=== PATIENT | female | born 1970 | race Caucasian/White ===

== ENCOUNTER → 2017-06-09 | Outpatient (CLI) | payer BC ==
[~2017-06-09] MED LIST: ALBU90OI INH; AMLO10; AZOR; AZOR PO; Avapro300 MG; Azor 10-20 MG1 EACH; Azor 10-40 MG1 EACH PO; BENTYL10 MG PO; CHOL10002; CHOL10002 PO; CYCL10 PO; ELIQUIS2.5 MG; ENOX100I SC; HYDACE5 PO; HYDR1TAB94; Hydrocodone-Ap1 EA23 PO; IBUP800 PO; IRBHYD300 PO; LISHYD2012 PO; RXCYCL10 PO; RXHYDACE PO
[2017-06-10 11:28] LABS: Candida species (DNA Probe) Negative (NEGATIVE); G. vaginalis (DNA Probe) Positive (NEGATIVE); T. vaginalis (DNA Probe) Negative (NEGATIVE)
== END | disposition home or self-care (01) ==
LOC: LAB SHORT 11:59
PROVIDERS: Obstetrics & Gynecology
DX: N76.0 Acute vaginitis (principal)
CPT/HCPCS: 87480; 87510; 87660

== ENCOUNTER 2017-09-01 09:03 | Day surgery (SDC) | payer BC ==
[~2017-09-01] VITALS: Ht 167.6 cm; Wt 81.7 kg
== END 2017-09-01 11:44 | disposition home or self-care (01) ==
LOC: ORSCSDS 09:03
PROVIDERS: Podiatrist Foot & Ankle Surgery
PROC: 0LBW0ZZ Excision of Left Foot Tendon, Open Approach (ICD-10-PCS; principal; 2017-09-01 10:15)
DX: L72.9 Follicular cyst of the skin and subcutaneous tissue, unspecified (principal); I10 Essential (primary) hypertension; D68.61 Antiphospholipid syndrome; E78.5 Hyperlipidemia, unspecified; Z79.01 Long term (current) use of anticoagulants; Z79.899 Other long term (current) drug therapy; Z87.891 Personal history of nicotine dependence
CPT/HCPCS: 88304; J0171; J0690; J1100; J1885; J2250; J2405; J3010; J7120

== ENCOUNTER 2019-07-04 07:44 | Day surgery (SDC) | payer OTHER ==
[~2019-07-04] VITALS: Ht 167.6 cm; Wt 85.5 kg
[~2019-07-04 07:44] MED LIST changes: +LINZESS72 MCG
[2019-07-04] MEDS ORDERED: HYDCHL12.5 (08:12)
== END 2019-07-04 10:22 | disposition home or self-care (01) ==
LOC: ORSCSDS 07:44
PROVIDERS: Internal Medicine Gastroenterology
PROC: 0DBK8ZX Excision of Ascending Colon, Via Natural or Artificial Opening Endoscopic, Diagnostic (ICD-10-PCS; principal; 2019-07-04 09:00)
PROC: 0DB78ZX Excision of Stomach, Pylorus, Via Natural or Artificial Opening Endoscopic, Diagnostic (ICD-10-PCS; principal; 2019-07-04 09:00)
PROC: 0DBL8ZX Excision of Transverse Colon, Via Natural or Artificial Opening Endoscopic, Diagnostic (ICD-10-PCS; principal; 2019-07-04 09:00)
PROC: 0DBN8ZX Excision of Sigmoid Colon, Via Natural or Artificial Opening Endoscopic, Diagnostic (ICD-10-PCS; principal; 2019-07-04 09:00)
DX: R19.4 Change in bowel habit (principal); K31.89 Other diseases of stomach and duodenum; D12.0 Benign neoplasm of cecum; K63.5 Polyp of colon; K64.8 Other hemorrhoids; K64.4 Residual hemorrhoidal skin tags; I10 Essential (primary) hypertension; Z79.899 Other long term (current) drug therapy
CPT/HCPCS: 88305; 88341; 88342; J2704; J7120

== ENCOUNTER → 2021-10-07 | Outpatient (CLI) | payer OTHER ==
[~2021-10-07] MED LIST changes: +HYDCHL12.5
[2021-10-08 10:11] LABS: Candida species (DNA Probe) Negative (NEGATIVE); G. vaginalis (DNA Probe) Negative (NEGATIVE); T. vaginalis (DNA Probe) Negative (NEGATIVE)
== END | disposition home or self-care (01) ==
LOC: LAB SHORT 12:00 → LAB 12:00
PROVIDERS: Nurse Practitioner Family
DX: N89.8 Other specified noninflammatory disorders of vagina (principal)
CPT/HCPCS: 87480; 87510; 87660

== ENCOUNTER → 2022-02-03 | Outpatient (CLI) | payer OTHER ==
[2022-02-03 17:03] LABS: BASOPHILS ABSOLUTE AUTO 0.11 K/mm3 (0.00-0.23); BASOPHILS PERCENT AUTO 1 % (0-2); EOSINOPHILS ABSOLUTE AUTO 0.15 K/mm3 (0.00-0.68); EOSINOPHILS PERCENT AUTO 1 % (0-6); Hematocrit 39.7 % (33.0-51.0); Hemoglobin 13.8 g/dL (11.5-16.0); IMMATURE GRAN ABSOLUTE AUTO 0.05 K/mm3 (0.00-0.10); IMMATURE GRAN PERCENT AUTO 0 % (0-1); LYMPHOCYTES ABSOLUTE AUTO 2.66 K/mm3 (0.84-5.20); LYMPHOCYTES PERCENT AUTO 18 % (21-46); MONOCYTES ABSOLUTE AUTO 0.76 K/mm3 (0.16-1.47); MONOCYTES PERCENT AUTO 5 % (4-13); Mean Corpuscular HGB 30.2 pg (26.0-34.0); Mean Corpuscular HGB Conc 34.8 g/dL (31.5-36.5); Mean Corpuscular Volume 87 fL (80-100); NEUTROPHILS PERCENT AUTO 75 % (41-73); Platelet Count 371 K/mm3 (150-400); RDW Coefficient Variation 11.7 % (11.7-14.2); RDW Standard Deviation 37.1 fL (35.1-46.3); Red Blood Cell Count 4.57 M/mm3 (3.80-5.20); White Blood Cell Count 14.83 K/mm3 (4.00-11.30)
[2022-02-03 17:11] LABS: Albumin, Blood 4.1 g/dL (3.4-5.0); Albumin/Globulin Ratio 1.2 (0.8-1.8); Bilirubin, Total 0.4 mg/dL (0.1-1.0); Bun/Creatinine Ratio 17.8 (12.0-20.0); Calcium, Blood 8.9 mg/dL (8.5-10.1); Creatinine, Blood 0.73 mg/dL (0.40-1.00); Globulin, Blood 3.3 g/dL (2.2-4.0); Potassium, Blood 4.3 mmol/L (3.5-5.5); Total Protein, Blood 7.4 g/dL (6.4-8.2)
== END | disposition home or self-care (01) ==
LOC: LAB 16:57 → LAB SHORT 16:57
PROVIDERS: Chiropractor
DX: R10.32 Left lower quadrant pain (principal)
CPT/HCPCS: 80053; 85025

== ENCOUNTER → 2022-12-22 | Outpatient (CLI) | payer OTHER ==
[2022-12-22 14:53] LABS: Alanine Aminotransfer (ALT/SGP 28 U/L (12-78); Albumin, Blood 3.9 g/dL (3.4-5.0); Albumin/Globulin Ratio 1.3 (0.8-1.8); Alk Phos 58 U/L (50-136); Anion Gap 5 mmol/L (6-16); Aspartate Aminotrans (AST/SGOT 11 U/L (12-37); Bilirubin, Direct <0.1 mg/dL (0.0-0.3); Bilirubin, Indirect Unable to Calculate mg/dL (0.1-0.7); Bilirubin, Total 0.5 mg/dL (0.1-1.0); Blood Urea Nitrogen 18 mg/dL (8-24); Bun/Creatinine Ratio 26.8 (12.0-20.0); CHOL/HDL RATIO 4.9; CO2, Blood 26 mmol/L (21-32); Calcium, Blood 8.8 mg/dL (8.5-10.1); Chloride, Blood 108 mmol/L (98-108); Cholesterol 200 mg/dL (50-200); Creatinine, Blood 0.67 mg/dL (0.40-1.00); Glomerular Filtration Rate 104 (60-); Glucose, Blood 113 mg/dL (70-99); HDL Cholesterol 41 mg/dL (>39); LDL/HDL RATIO 2.8; Low Density Lipoprotein Chol 113 mg/dL (0-110); Potassium, Blood 4.2 mmol/L (3.5-5.5); Sodium, Blood 139 mmol/L (136-145); Total Protein, Blood 6.9 g/dL (6.4-8.2); Triglycerides 231 mg/dL (30-160); Very Low Density Lipoprot Chol 46 mg/dL (6-32)
[2022-12-22 15:00] LABS: BASOPHILS ABSOLUTE AUTO 0.09 K/mm3 (0.00-0.23); BASOPHILS PERCENT AUTO 1 % (0-2); EOSINOPHILS ABSOLUTE AUTO 0.25 K/mm3 (0.00-0.68); EOSINOPHILS PERCENT AUTO 3 % (0-6); Hematocrit 38.7 % (33.0-51.0); Hemoglobin 13.1 g/dL (11.5-16.0); IMMATURE GRAN ABSOLUTE AUTO 0.04 K/mm3 (0.00-0.10); IMMATURE GRAN PERCENT AUTO 1 % (0-1); LYMPHOCYTES ABSOLUTE AUTO 2.31 K/mm3 (0.84-5.20); LYMPHOCYTES PERCENT AUTO 30 % (21-46); MONOCYTES ABSOLUTE AUTO 0.55 K/mm3 (0.16-1.47); MONOCYTES PERCENT AUTO 7 % (4-13); Mean Corpuscular HGB 30.4 pg (26.0-34.0); Mean Corpuscular HGB Conc 33.9 g/dL (31.5-36.5); Mean Corpuscular Volume 90 fL (80-100); Mean Platelet Volume 11.3 fL (9.1-12.4); NEUTROPHILS ABSOLUTE AUTO 4.56 K/mm3 (1.96-9.15); NEUTROPHILS PERCENT AUTO 58 % (41-73); Platelet Count 379 K/mm3 (150-400); RDW Coefficient Variation 11.9 % (11.7-14.2); RDW Standard Deviation 39.1 fL (35.1-46.3); Red Blood Cell Count 4.31 M/mm3 (3.80-5.20)
== END | disposition home or self-care (01) ==
LOC: LAB SHORT 06:55 → LAB 06:55
PROVIDERS: Internal Medicine
DX: E55.9 Vitamin D deficiency, unspecified (principal); E78.5 Hyperlipidemia, unspecified; I10 Essential (primary) hypertension; R73.9 Hyperglycemia, unspecified; Z79.899 Other long term (current) drug therapy
CPT/HCPCS: 80048; 80061; 80076; 82306; 83036; 85025

== ENCOUNTER → 2023-03-14 | Outpatient (CLI) | payer OTHER ==
[2023-03-15 12:15] LABS: Candida species (DNA Probe) Negative (NEGATIVE); G. vaginalis (DNA Probe) Positive (NEGATIVE); T. vaginalis (DNA Probe) Negative (NEGATIVE)
== END ==
LOC: LAB 17:44 → LAB SHORT 17:44
PROVIDERS: Registered Nurse Community Health
DX: N89.8 Other specified noninflammatory disorders of vagina (principal)
CPT/HCPCS: 87480; 87510; 87660

== ENCOUNTER → 2023-05-04 | Outpatient (CLI) | payer OTHER | LOC: LAB 12:00 → LAB SHORT 12:00 | DX: L02.213 Cutaneous abscess of chest wall (principal) | CPT/HCPCS: 87070; 87075; 87076; 87205 ==

== ENCOUNTER 2024-08-19 10:05 | Day surgery (SDC) | payer OTHER ==
[~2024-08-19] VITALS: Ht 167.6 cm; Wt 87.1 kg
[~2024-08-19 10:05] MED LIST changes: +Bupivacaine 0.5% W/EPI 1:200000 SDV 30 ML Vial ONE; +Lactated Ringer's 1,000 ML IV ONE
[2024-08-19] MEDS ORDERED: CeFAZolin Sodium 2,000 MG VIAL ONE (10:25)
[2024-08-19] MEDS ORDERED: METOPROLOL SUCC25 MG PO (10:30)
[2024-08-19] MEDS ORDERED: Bentyl10 MG PO (10:31)
[2024-08-19] MEDS ORDERED: MOTEGRITY2 MG PO (10:31)
[2024-08-19] MEDS ORDERED: XANAX0.25 MG PO (10:31)
[2024-08-19] MEDS ORDERED: VIBRANT PO (10:32)
[2024-08-19] MEDS ORDERED: Lactated Ringer's 1,000 ML IV ONE (10:43)
[2024-08-19] MEDS ORDERED: FentaNYL Citrate 50 MCG/ML 2 ML Injection ONE ×2 (11:35→12:56)
[2024-08-19] MEDS ORDERED: propofoL 20 ML IV ONE (11:35)
[2024-08-19] MEDS ORDERED: OxyCODONE 5 mg/Acetamin 325 mg TABLET ONE (12:57)
[2024-08-19 13:12] VITALS: BP 127/65
--- NOTE | 2024-08-19 13:41 | NUR ---
08/19/24 [address], ICE PACK PROVIDED. SBA/WC TO CAR.
== END 2024-08-19 13:36 | disposition home or self-care (01) ==
LOC: ORSCSDS 10:05
PROVIDERS: Podiatrist Foot & Ankle Surgery
PROC: 0J8R3ZZ Division of Left Foot Subcutaneous Tissue and Fascia, Percutaneous Approach (ICD-10-PCS; principal; 2024-08-19 11:30)
DX: M72.2 Plantar fascial fibromatosis (principal); I10 Essential (primary) hypertension; Z79.01 Long term (current) use of anticoagulants; Z79.899 Other long term (current) drug therapy
CPT/HCPCS: A9270; J0690; J2704; J3010; J7120